=== PATIENT | female | born 1990 | race African-American/Black ===

== ENCOUNTER 2021-09-25 07:23 | Emergency (ER) | payer OTHER ==
[2021-09-25] MEDS ORDERED: Morphine 4 MG/ML VIAL ONE (08:10)
[2021-09-25] MEDS ORDERED: Ondansetron PF 4 MG/2 ML Vial ONE (08:10)
[2021-09-25 08:21] LABS: Bilirubin Neg (Negative); Blood, Urine Negative (Negative); Clarity Clear (Clear); Glucose, Urine (Dipstick) Normal (Negative); Ketone, Urine 150 mg/dL (Negative); Leukocyte Negative (Negative); Nitrite Negative (Negative); Protein, Urine (Dipstick) 15 mg/dl (Neg-Trace); Urobilinogen Normal mg/dL (Less than 2)
[2021-09-25 08:22] LABS: #Monocytes 0.4 10x3/uL (0.0-1.1); #Neutrophils 7.4 10x3/uL (1.5-8.4); %Basophils 0.3 % (0.0-2.0); %Eosinophils 0.1 % (0.0-6.0); %Lymphocytes 13.9 % (18.0-47.0); %Monocytes 4.1 % (0.0-10.0); %Neutrophils 81.2 % (40.0-75.0); Hemoglobin 13.9 g/dL (12.0-15.5); Mean Corpuscular HGB CONC 33.4 g/dL (32.0-36.0); Mean Corpuscular Hemoglobin 29.6 pg (27.0-33.0); Mean Corpuscular Volume 88.5 fl (81.6-98.3); Mean Platelet Volume 9.6 fl (7.4-10.4); Platelet Count 378 10x3/uL (150-450); RBC Distribution Width 11.9 % (11.5-14.5); White Blood Cell (WBC) Count 9.1 10x3/uL (3.5-10.5)
[2021-09-25 08:29] LABS: ALT (SGPT) 18 U/L (8-55); AST (SGOT) 19 U/L (5-34); Albumin 4.4 g/dL (3.5-5.0); Alkaline Phosphatase 57 U/L (40-110); Anion Gap 14 mmol/L (10-20); BUN (Urea Nitrogen) 6 mg/dL (7.0-18.7); Bilirubin, Total 0.4 mg/dL (0.2-1.2); Calc. Creatinine Clearance 0 mL/min (70-130); Calcium 9.1 mg/dL (7.8-10.44); Carbon Dioxide 20 mmol/L (22-29); Chloride 105 mmol/L (98-107); Globulin 3.1 g/dL (2.4-3.5); Glucose 99 mg/dL (70-105); Lipase 29 U/L (8-78); Potassium 3.3 mmol/L (3.5-5.1); Protein, Total 7.5 g/dL (6.0-8.3); Sodium 136 mmol/L (136-145)
== END 2021-09-25 10:22 | disposition home or self-care (01) ==
LOC: CSHERS 07:23
DX: O20.0 Threatened abortion (principal); Z3A.08 8 weeks gestation of pregnancy
CPT/HCPCS: 36415; 80053; 81003; 83690; 84702; 85025; 96374; 96375; J2270; J2405

== ENCOUNTER 2021-10-06 14:36 | Outpatient (CLI) | payer OTHER ==
[2021-10-07 10:03] VITALS: BMI 24.0
== END 2021-10-06 14:37 | disposition home or self-care (01) ==
LOC: CSHLAB 14:36
PROVIDERS: ATTEND Obstetrics & Gynecology
DX: Z01.812 Encounter for preprocedural laboratory examination (principal); Z20.822 Contact with and (suspected) exposure to COVID-19
CPT/HCPCS: 85027; 86850; 86900; 86901; U0003; U0005

== ENCOUNTER 2021-10-08 09:02 | Day surgery (SDC) | payer OTHER ==
[2021-10-06 15:49] LABS: Hemoglobin 13.1 g/dL (12.0-15.5); Mean Corpuscular HGB CONC 34.1 g/dL (32.0-36.0); Mean Corpuscular Volume 87.9 fl (81.6-98.3); Mean Platelet Volume 9.8 fl (7.4-10.4); Platelet Count 346 10x3/uL (150-450); RBC Distribution Width 12.1 % (11.5-14.5); Red Blood Cell (RBC) Count 4.37 10x6/uL (3.90-5.03); White Blood Cell (WBC) Count 7.2 10x3/uL (3.5-10.5)
[2021-10-07 13:30] LABS: SARS-CoV-2 PCR by NAA Not Detected (NotDetected)
[2021-10-07 14:13] VITALS: BMI 24.0
[2021-10-08] MEDS ORDERED: Lidocaine 1% MPF 2 ML VIAL ONE (10:19)
[2021-10-08] MEDS ORDERED: Midazolam HCl 2 mg/2 ml Vial ONE (11:51)
== END 2021-10-08 13:30 | disposition home or self-care (01) ==
LOC: CSHSDC 09:02
PROVIDERS: ATTEND Obstetrics & Gynecology
PROC: 10D17ZZ Extraction of Products of Conception, Retained, Via Natural or Artificial Opening (ICD-10-PCS; principal; 2021-10-08)
DX: O02.1 Missed abortion (principal)
CPT/HCPCS: 85027; 86850; 86900; 86901; 88305; J0690; J2250; U0003; U0005

== ENCOUNTER 2021-11-03 09:50 | Emergency (ER) | payer OTHER ==
[2021-11-03] MEDS ORDERED: Ondansetron ODT 4 MG TAB ONE (11:46)
[2021-11-03] MEDS ORDERED: Ketorolac Tromethamine 30 MG/ML VIAL ONE (11:47)
== END 2021-11-03 12:37 | disposition home or self-care (01) ==
LOC: CSHERS 09:50
DX: J01.10 Acute frontal sinusitis, unspecified (principal)
CPT/HCPCS: 96372; 99283; J1885; Q0162

== ENCOUNTER 2021-11-03 13:53 | Outpatient (CLI) | payer OTHER ==
[2021-11-03 15:57] LABS: BHCG - Serum Negative (NEGATIVE); Pregs Control Background? CLEAR/WHITE (CLR/WHITE); Pregs Control Bar Appear? YES (CONTROL BAR)
[2021-11-04 08:59] LABS: SARS-CoV-2 PCR by NAA Not Detected (NotDetected)
== END 2021-11-03 13:54 | disposition home or self-care (01) ==
LOC: CSHLAB 13:53
PROVIDERS: ATTEND Surgery
DX: Z01.812 Encounter for preprocedural laboratory examination (principal); Z20.822 Contact with and (suspected) exposure to COVID-19
CPT/HCPCS: 84703; U0003; U0005

== ENCOUNTER 2021-11-06 06:25 | Day surgery (SDC) | payer OTHER ==
[2021-11-04 14:45] VITALS: BMI 23.9
[2021-11-06] MEDS ORDERED: Lidocaine 1% MPF 2 ML VIAL ONE (08:02)
[2021-11-06] MEDS ORDERED: HYDROcodone/Acetaminophen 5/325 mg Tablet PO PRN (08:32)
[2021-11-06] MEDS ORDERED: Midazolam HCl 2 mg/2 ml Vial ONE (08:34)
[2021-11-06] MEDS ORDERED: Famotidine/PF 20 mg/2ml Vial ONE (08:35)
[2021-11-06] MEDS ORDERED: CEFAZOLIN 1 GM VIAL ONE (09:05)
[2021-11-06] MEDS ORDERED: Bupivacaine PF 0.5% 30 ML VIAL ONE (09:05)
[2021-11-06] MEDS ORDERED: EPINEPHrine 1 MG/ML AMP ONE (09:05)
[2021-11-06] MEDS ORDERED: HYDROcodone/Acetaminophen 5/325 mg Tablet ONE (10:41)
== END 2021-11-06 11:20 | disposition home or self-care (01) ==
LOC: CSHSDC 06:25
PROVIDERS: ATTEND Surgery
PROC: 0FT44ZZ Resection of Gallbladder, Percutaneous Endoscopic Approach (ICD-10-PCS; principal; 2021-11-06)
DX: K80.10 Calculus of gallbladder with chronic cholecystitis without obstruction (principal)
CPT/HCPCS: 88304; C1776; J0171; J0690; J2250; S0020; S0028

== ENCOUNTER 2021-11-13 08:25 | Emergency (ER) | payer OTHER ==
[2021-11-13] MEDS ORDERED: Ondansetron PF 4 MG/2 ML Vial ONE (08:36)
[2021-11-13] MEDS ORDERED: Ketorolac Tromethamine 30 MG/ML VIAL ONE (08:36)
[2021-11-13] MEDS ORDERED: Morphine 4 MG/ML VIAL ONE (08:36)
[2021-11-13 09:34] LABS: #Monocytes 0.4 10x3/uL (0.0-1.1); %Basophils 0.2 % (0.0-2.0); %Eosinophils 0.2 % (0.0-6.0); %Lymphocytes 13.3 % (18.0-47.0); %Monocytes 4.6 % (0.0-10.0); %Neutrophils 81.2 % (40.0-75.0); Hemoglobin 12.4 g/dL (12.0-15.5); Mean Corpuscular HGB CONC 33.7 g/dL (32.0-36.0); Mean Corpuscular Hemoglobin 29.1 pg (27.0-33.0); Mean Corpuscular Volume 86.4 fl (81.6-98.3); Mean Platelet Volume 9.2 fl (7.4-10.4); Platelet Count 369 10x3/uL (150-450); RBC Distribution Width 11.8 % (11.5-14.5); Red Blood Cell (RBC) Count 4.26 10x6/uL (3.90-5.03); White Blood Cell (WBC) Count 8.7 10x3/uL (3.5-10.5)
[2021-11-13 10:05] LABS: ALT (SGPT) 67 U/L (8-55); AST (SGOT) 193 U/L (5-34); Albumin 3.5 g/dL (3.5-5.0); Alkaline Phosphatase 70 U/L (40-110); Anion Gap 12 mmol/L (10-20); BUN (Urea Nitrogen) 8 mg/dL (7.0-18.7); Bilirubin, Total 0.7 mg/dL (0.2-1.2); Calc. Creatinine Clearance 0 mL/min (70-130); Calcium 8.3 mg/dL (7.8-10.44); Carbon Dioxide 23 mmol/L (22-29); Chloride 105 mmol/L (98-107); Globulin 2.4 g/dL (2.4-3.5); Glucose 100 mg/dL (70-105); Lipase 28 U/L (8-78); Protein, Total 5.9 g/dL (6.0-8.3); Sodium 137 mmol/L (136-145)
[2021-11-13 10:21] LABS: Potassium 2.8 mmol/L (3.5-5.1)
[2021-11-13] MEDS ORDERED: Potassium Chloride 20 MEQ TAB ONE (10:25)
== END 2021-11-13 11:00 | disposition home or self-care (01) ==
LOC: CSHERS 08:25
DX: K52.9 Noninfective gastroenteritis and colitis, unspecified (principal); R19.09 Other intra-abdominal and pelvic swelling, mass and lump; E87.6 Hypokalemia
CPT/HCPCS: 36415; 74177; 80053; 83690; 85025; 96374; 96375; J1885; J2270; J2405

== ENCOUNTER 2021-11-15 17:22 | Inpatient (IN) | payer OTHER ==
[2021-11-15] MEDS ORDERED: Morphine 4 MG/ML VIAL ONE ×3 (18:06→21:16)
[2021-11-15 18:08] LABS: #Eosinphils 0.1 10x3/uL (0.0-0.5); #Monocytes 0.5 10x3/uL (0.0-1.1); #Neutrophils 4.7 10x3/uL (1.5-8.4); %Basophils 0.4 % (0.0-2.0); %Eosinophils 1.1 % (0.0-6.0); %Lymphocytes 25.8 % (18.0-47.0); %Monocytes 7.1 % (0.0-10.0); %Neutrophils 65.5 % (40.0-75.0); Hemoglobin 13.8 g/dL (12.0-15.5); Mean Corpuscular HGB CONC 33.5 g/dL (32.0-36.0); Mean Corpuscular Hemoglobin 29.2 pg (27.0-33.0); Mean Corpuscular Volume 87.3 fl (81.6-98.3); Mean Platelet Volume 9.3 fl (7.4-10.4); Platelet Count 443 10x3/uL (150-450); Red Blood Cell (RBC) Count 4.72 10x6/uL (3.90-5.03); White Blood Cell (WBC) Count 7.1 10x3/uL (3.5-10.5)
[2021-11-15] MEDS ORDERED: Ondansetron PF 4 MG/2 ML Vial ONE (18:08)
[2021-11-15] MEDS ORDERED: Mag-Al Plus 1200 MG/1200 MG/120 MG/30 ML UDCUP ONE (18:08)
[2021-11-15] MEDS ORDERED: Lidocaine Viscous Sol 2% 15 ml UD Cup ONE (18:08)
[2021-11-15 18:19] LABS: ALT (SGPT) 577 U/L (8-55); AST (SGOT) 382 U/L (5-34); Albumin 4.3 g/dL (3.5-5.0); Alkaline Phosphatase 199 U/L (40-110); Anion Gap 16 mmol/L (10-20); BUN (Urea Nitrogen) 9 mg/dL (7.0-18.7); Bilirubin, Total 3.8 mg/dL (0.2-1.2); Calc. Creatinine Clearance 0 mL/min (70-130); Calcium 9.5 mg/dL (7.8-10.44); Carbon Dioxide 25 mmol/L (22-29); Chloride 103 mmol/L (98-107); Globulin 3.2 g/dL (2.4-3.5); Glucose 84 mg/dL (70-105); Lipase 31 U/L (8-78); Potassium 3.7 mmol/L (3.5-5.1); Protein, Total 7.5 g/dL (6.0-8.3); Sodium 140 mmol/L (136-145)
[2021-11-15] MEDS ORDERED: Ketorolac Tromethamine 30 MG/ML VIAL ONE (19:27)
[2021-11-15] MEDS ORDERED: Piperacillin/Tazobactam 4.5 GM VIAL ONE (20:12)
[2021-11-15] MEDS ORDERED: Morphine 4 MG/ML VIAL SLOW IVP PRN (22:03)
[2021-11-15] MEDS ORDERED: Ondansetron ODT 4 MG TAB SL PRN (22:15)
[2021-11-15] MEDS: Ondansetron PF 4 MG/2 ML Vial IVP PRN (22:20)
[2021-11-15] MEDS: Sodium Chloride 0.9% 1,000 ML IV SCH (22:51)
[2021-11-15 22:57] VITALS: BMI 22.1
[2021-11-16] MEDS ORDERED: Piperacillin/Tazobactam 3.375 GM in Sodium Chloride 0.9% 100 ML IVPB SCH (04:00)
[2021-11-16] MEDS: Ondansetron PF 4 MG/2 ML Vial IVP PRN (05:03)
[2021-11-16] MEDS ORDERED: Dextrose 5% in Water 1,000 ML IV PRN (05:23)
[2021-11-16] MEDS ORDERED: Dextrose 50% Abboject 50 ML SYRINGE SLOW IVP PRN (05:23)
[2021-11-16 06:39] LABS: SARS-CoV-2 NAA Rapid Test Not Detected (NotDetected)
[2021-11-16] MEDS ORDERED: Indomethacin 50 MG SUPP ONE (07:25)
[2021-11-16] MEDS ORDERED: Iopamidol 15 ML ONE (07:25)
[2021-11-16] MEDS ORDERED: Dexamethasone 4 mg/ml Vial ONE (07:52)
[2021-11-16] MEDS ORDERED: Rocuronium Bromide 10 MG/ML (10ML VIAL) ONE (07:52)
[2021-11-16] MEDS ORDERED: PROPOFOL 20 ML ONE (07:52)
[2021-11-16] MEDS ORDERED: Ondansetron PF 4 MG/2 ML Vial ONE (07:52)
[2021-11-16] MEDS ORDERED: Fentanyl 100 MCG/2 ML VIAL ONE (07:52)
[2021-11-16] MEDS ORDERED: Lidocaine 1% PF 5 ML VIAL ONE (07:52)
[2021-11-16] MEDS ORDERED: PHENYLEPHRINE-NS 100 MCG/ML 10 ML SYRINGE ONE (08:34)
[2021-11-16] MEDS ORDERED: Glycopyrrolate 0.2 MG/ML 5 ML SYRINGE ONE (08:49)
[2021-11-16] MEDS: Lactated Ringer's 1,000 ML IV SCH ×2 (11:00→21:12)
[2021-11-16] MEDS: diphenhydrAMINE 25 MG CAP PO PRN (21:13)
[2021-11-16] MEDS: Sodium Chloride 0.9% 1,000 ML IV SCH (23:40)
[2021-11-17] MEDS: diphenhydrAMINE 25 MG CAP PO PRN (03:21)
[2021-11-17] MEDS: Lactated Ringer's 1,000 ML IV SCH (04:35)
[2021-11-17 05:49] LABS: #Eosinphils 0.1 10x3/uL (0.0-0.5); #Monocytes 0.6 10x3/uL (0.0-1.1); #Neutrophils 5.6 10x3/uL (1.5-8.4); %Basophils 0.3 % (0.0-2.0); %Eosinophils 1.1 % (0.0-6.0); %Lymphocytes 31.6 % (18.0-47.0); %Monocytes 6.6 % (0.0-10.0); Hemoglobin 11.2 g/dL (12.0-15.5); Mean Corpuscular HGB CONC 33.1 g/dL (32.0-36.0); Mean Corpuscular Hemoglobin 29.4 pg (27.0-33.0); Mean Corpuscular Volume 88.7 fl (81.6-98.3); Mean Platelet Volume 9.6 fl (7.4-10.4); Platelet Count 352 10x3/uL (150-450); Red Blood Cell (RBC) Count 3.81 10x6/uL (3.90-5.03); White Blood Cell (WBC) Count 9.3 10x3/uL (3.5-10.5)
[2021-11-17 05:57] LABS: ALT (SGPT) 272 U/L (8-55); AST (SGOT) 76 U/L (5-34); Alkaline Phosphatase 129 U/L (40-110); Anion Gap 10 mmol/L (10-20); BUN (Urea Nitrogen) 6 mg/dL (7.0-18.7); Bilirubin, Total 0.8 mg/dL (0.2-1.2); Calc. Creatinine Clearance 117 mL/min (70-130); Calcium 8.2 mg/dL (7.8-10.44); Carbon Dioxide 25 mmol/L (22-29); Chloride 109 mmol/L (98-107); Globulin 2.2 g/dL (2.4-3.5); Glucose 99 mg/dL (70-105); Lipase 27 U/L (8-78); Potassium 3.6 mmol/L (3.5-5.1); Protein, Total 5.2 g/dL (6.0-8.3); Sodium 140 mmol/L (136-145)
[2021-11-17 08:50] VITALS: BP 109/65; TEMP 98.4
[2021-11-17] MEDS ORDERED: FLU VACC QS2021-22(6MOS UP)/PF 60 MCG/0.5 ML SYRINGE IM ONE (09:00)
== END 2021-11-17 11:50 | disposition home or self-care (01) | DRG 446 ==
LOC: CSHERS 17:22 → CSHTELE 21:53
PROVIDERS: ADMIT Surgery; ATTEND Surgery
PROC: 0FC98ZZ Extirpation of Matter from Common Bile Duct, Via Natural or Artificial Opening Endoscopic (ICD-10-PCS; principal; 2021-11-16)
PROC: BF101ZZ Fluoroscopy of Bile Ducts using Low Osmolar Contrast (ICD-10-PCS; 2021-11-16)
DX: K80.50 Calculus of bile duct without cholangitis or cholecystitis without obstruction (principal); Z90.49 Acquired absence of other specified parts of digestive tract; Y83.8 Other surgical procedures as the cause of abnormal reaction of the patient, or of later complication, without mention of misadventure at the time of the procedure; Z20.822 Contact with and (suspected) exposure to COVID-19
CPT/HCPCS: 36415; 74330; 76705; 80053; 83690; 85025; 96361; 96365; 96375; 96376; J1100; J1885; J2270; J2405; J2543; J2704; J3010; J3490; J7050; J7120; Q9967; U0002

== ENCOUNTER 2021-12-24 12:09 | Outpatient (CLI) | payer BC, OTHER ==
[2021-12-24 21:07] LABS: SARS-CoV-2 PCR by NAA Not Detected (NotDetected)
== END 2021-12-24 12:10 | disposition home or self-care (01) ==
LOC: CSHLAB 12:09
PROVIDERS: ATTEND Internal Medicine Gastroenterology
DX: Z20.822 Contact with and (suspected) exposure to COVID-19 (principal); R10.9 Unspecified abdominal pain; R93.89 Abnormal findings on diagnostic imaging of other specified body structures
CPT/HCPCS: U0003; U0005

== ENCOUNTER 2021-12-29 10:46 | Day surgery (SDC) | payer BC, OTHER ==
[2021-12-25 10:08] VITALS: BMI 24.7
[2021-12-29] MEDS ORDERED: Lidocaine 1% MPF 2 ML VIAL ONE (11:19)
[2021-12-29] MEDS ORDERED: Lidocaine 1% PF 5 ML VIAL ONE (12:34)
[2021-12-29] MEDS ORDERED: PROPOFOL 20 ML ONE (12:54)
== END 2021-12-29 13:34 | disposition home or self-care (01) ==
LOC: CSHSDC 10:46
PROVIDERS: ATTEND Internal Medicine Gastroenterology
PROC: 0DJD8ZZ Inspection of Lower Intestinal Tract, Via Natural or Artificial Opening Endoscopic (ICD-10-PCS; principal; 2021-12-29)
DX: R10.9 Unspecified abdominal pain (principal); R93.89 Abnormal findings on diagnostic imaging of other specified body structures; R19.7 Diarrhea, unspecified; K64.8 Other hemorrhoids
CPT/HCPCS: J2704

== ENCOUNTER 2023-01-18 07:36 | Emergency (ER) | payer BC, OTHER | END 2023-01-18 08:28 | disposition home or self-care (01) | LOC: CSHERS 07:36 | DX: J30.9 Allergic rhinitis, unspecified (principal); J02.9 Acute pharyngitis, unspecified | CPT/HCPCS: 99283 ==

== ENCOUNTER 2024-05-11 07:09 | Emergency (ER) | payer BC, OTHER ==
[2024-05-11] MEDS ORDERED: Ketorolac Tromethamine 30 MG (1 mL) VIAL ONE (07:34)
[2024-05-11] MEDS ORDERED: Ondansetron ODT 4 MG TAB ONE (07:34)
[2024-05-11 08:31] LABS: Influenza A by NAA Not Detected (NotDetected); Influenza B by NAA Not Detected (NotDetected); SARS-CoV-2 NAA Rapid Test DETECTED (NotDetected)
== END 2024-05-11 09:04 | disposition home or self-care (01) ==
LOC: CSHERS 07:09
DX: U07.1 COVID-19 (principal); Z55.6 Problems related to health literacy
CPT/HCPCS: 96372; 99284; J1885; Q0162